=== PATIENT | female | born 1995 | race Caucasian/White ===

== ENCOUNTER 2016-09-17 21:23 | Emergency (ER) | payer BC ==
[2016-09-17 21:31] VITALS: TEMP 98.2
[2016-09-17] MEDS ORDERED: IPRATROPIUM/ALBUTEROL 3 ML DEYVIAL IH ONE (21:34)
--- NOTE | 2016-09-17 23:10 | CPEKG ---
Heart Rate: 90 RR Interval: 667 P-R Interval: 152 QRSD Interval: 100 QT Interval: 356 QTC Interval: 436 P [place]: 11 QRS [place]: 66 T Wave [place]: 29 EKG Severity - NORMAL ECG - EKG Impression: SINUS RHYTHM Electronically Signed By: Tracey Coppola 17-Sep-2016 23:10:09
[2016-09-17 23:11] LABS: % IMMATURE GRANULYOCYTES 0.9 % (0.0-1.1); ABSOLUTE IMMATURE GRANULOCYTES 0.04 10^3/uL (0.00-0.10); ADD DIFF? NO; ADD MORPH? NO; ADD SCAN? NO; ATYPICAL LYMPHOCYTE FLAG 10 (0-99); FRAGMENT RBC FLAG 0 (0-99); HEMATOCRIT 38.7 % (38.0-47.0); HEMOGLOBIN 13.7 g/dL (12.6-16.3); LEFT SHIFT FLG 0 (0-99); LIPEMIA HEMOLYSIS FLAG 90 (0-99); MEAN CELL HEMOGLOBIN 31.3 pg (27.9-34.1); MEAN CELL HEMOGLOBIN CONCENTR. 35.4 g/dL (32.4-36.7); MEAN CELL VOLUME 88.4 fL (81.5-99.8); MEAN PLATELET VOLUME 8.8 fL (8.7-11.7); PLATELET CLUMPS FLAG 10 (0-99); PLATELET COUNT 215 10^3/uL (150-400); RED BLOOD CELL COUNT 4.38 10^6/uL (4.18-5.33); RED CELL DISTRIBUTION WIDTH 11.7 % (11.5-15.2)
[2016-09-17 23:26] LABS: ANION GAP 15 mEq/L (8-16); CALCIUM 9.4 mg/dL (8.5-10.4); CARBON DIOXIDE 21 mEq/l (22-31); CHLORIDE 103 mEq/L (97-110); CREATININE 0.6 mg/dL (0.6-1.0); GLOMERULAR FILTRATION RATE > 60; GLUCOSE 76 mg/dL (70-100); POTASSIUM 3.2 mEq/L (3.5-5.2); SODIUM 139 mEq/L (134-144)
[2016-09-17 23:37] LABS: TROPONIN I < 0.012 ng/mL (0-0.034)
[2016-09-17] MEDS ORDERED: predniSONE 20 MG TAB PO ONE (23:40)
--- NOTE | 2016-09-17 23:40 | EDPHY ---
H & P Stated Complaint: Asthmatic increased use of nebulizers today. Time Seen by Provider: 09/17/16 21:51 HPI/ROS: Chief complaint: Difficulty breathing History of present illness: This is a 21-year-old female who presents to the emergency department for difficulty breathing. Patient reports a history of asthma. She states she had problems with a as a child and did need to be hospitalized. However she states she has run out of it and has not had significant problems long time. However, over the last few days she has noted increasing trouble breathing. She started using nebulizer again which does help the problem but quickly wears off. She denies any specific precipitating factors. She denies other alleviating factors. She denies other associated signs or symptoms including no fevers, no cold symptoms, no chest pain, no pain or swelling in the legs. - Personal History LMP (Females 10-55): 15-21 Days Ago Current Tetanus/Diphtheria Vaccine: Unsure Current Tetanus Diphtheria and Acellular Pertussis (TDAP): Unsure - Medical/Surgical History Hx Asthma: Yes Hx Chronic Respiratory Disease: No Hx Diabetes: No Hx Cardiac Disease: No Hx Renal Disease: No Hx Cirrhosis: No Hx Alcoholism: No Hx HIV/AIDS: No Hx Splenectomy or Spleen Trauma: No Other PMH: ASTHMA, RA, neuritis. - Social History Smoking Status: Never smoked - Physical Exam Exam: General Appearance: Alert, nontoxic . Eyes: Pupils equal and round no pallor or injection. ENT, Mouth: Mucous membranes moist. Respiratory: There are no retractions, lungs are clear to auscultation. Cardiovascular: Regular rate and rhythm. Gastrointestinal: Abdomen is soft and nontender, no masses, bowel sounds normal. Neurological: Alert and oriented x4. Strength and sensation intact and symmetrical. Skin: Warm and dry, no rashes. Musculoskeletal: Neck is supple nontender. Extremities are symmetrical, full range of motion. Psychiatric: Patient is oriented X 3, there is no agitation. Constitutional: Initial Vital Signs Temperature (C) 36.8 C 09/17/16 21:28 Heart Rate 111 H 09/17/16 21:28 Respiratory Rate 22 H 09/17/16 21:28 Blood Pressure 124/80 H 09/17/16 21:28 O2 Sat (%) 100 09/17/16 21:28 O2 Delivery Mode Room Air Allergies/Adverse Reactions: No Known Allergies Allergy (Verified 09/17/16 21:31) Home Medications: Medication Instructions Recorded Albuterol 09/17/16 Albuterol 5 mg/ml INH 09/17/16 Flovent Diskus 09/17/16 predniSONE 40 mg PO DAILY 3 Days 09/17/16 Medical Decision Making - Diagnostics Imaging: Chest x-ray negative ED Course/Re-evaluation: Patient seen under the supervision of my secondary supervising physician Dr. Tracey Coppola. Patient presents to the emergency department for trouble breathing. She does have a history of asthma but has not had symptoms in a long time. I my evaluation she is talking in full sentences and her lungs are clear to auscultation and she has normal pulse oximetry. This is after she was given a nebulizer in the emergency room. Nursing staff does report they heard wheezing on evaluation. Blood status, EKG and chest x-ray unremarkable. I do believe this is likely asthma exacerbation. She does appear to be responding 2 nebulizers and states she does feel much better after we gave her one here. Patient will be discharged home and asked to continue her nebulizers. She will be given a burst of steroids. She is asked to follow up with a primary care doctor for recheck. Return precautions are given. Patient voiced understanding and agreement with plan Differential Diagnosis: Included but not limited to asthma exacerbation, pulmonary infections, pulmonary embolism, cardiac dysrhythmias, anxiety - Data Points Laboratory Results: Laboratory Results 09/17/16 23:05 09/17/16 23:05 09/17/16 09/17/16 09/17/16 23:05 23:05 23:05 WBC RBC Hgb Hct MCV MCH MCHC RDW Plt Count MPV Neut % (Auto) Lymph % (Auto) [place] % (Auto) Eos % (Auto) Baso % (Auto) Nucleat RBC Rel Count Absolute Neuts (auto) Absolute Lymphs (auto) Absolute Monos (auto) Absolute Eos (auto) Absolute Basos (auto) Absolute Nucleated RBC Immature Gran % Immature Gran # D-Dimer < 0.27 ug/mLFEU ug/mLFEU (0.00-0.50) Sodium 139 mEq/L mEq/L (134-144) Potassium 3.2 mEq/L L mEq/L (3.5-5.2) Chloride 103 mEq/L mEq/L (97-110) Carbon Dioxide 21 mEq/l L mEq/l (22-31) Anion Gap 15 mEq/L mEq/L (8-16) BUN 8 mg/dL mg/dL (7-23) Creatinine 0.6 mg/dL mg/dL (0.6-1.0) Estimated GFR > 60 Glucose 76 mg/dL mg/dL (70-100) Calcium 9.4 mg/dL mg/dL (8.5-10.4) Troponin I < 0.012 ng/mL ng/mL (0-0.034) Beta HCG, Qual NEGATIVE 09/17/16 23:05 WBC 4.68 10^3/uL 10^3/uL (3.80-9.50) RBC 4.38 10^6/uL 10^6/uL (4.18-5.33) Hgb 13.7 g/dL g/dL (12.6-16.3) Hct 38.7 % % (38.0-47.0) MCV 88.4 fL fL (81.5-99.8) MCH 31.3 pg pg (27.9-34.1) MCHC 35.4 g/dL g/dL (32.4-36.7) RDW 11.7 % % (11.5-15.2) Plt Count 215 10^3/uL 10^3/uL (150-400) MPV 8.8 fL fL (8.7-11.7) Neut % (Auto) 70.4 % % (39.3-74.2) Lymph % (Auto) 17.5 % % (15.0-45.0) Mcleod % (Auto) 10.0 % % (4.5-13.0) Eos % (Auto) 0.6 % % (0.6-7.6) Baso % (Auto) 0.6 % % (0.3-1.7) Nucleat RBC Rel Count 0.0 % % (0.0-0.2) Absolute Neuts (auto) 3.29 10^3/uL 10^3/uL (1.70-6.50) Absolute Lymphs (auto) 0.82 10^3/uL L 10^3/uL (1.00-3.00) Absolute Monos (auto) 0.47 10^3/uL 10^3/uL (0.30-0.80) Absolute Eos (auto) 0.03 10^3/uL 10^3/uL (0.03-0.40) Absolute Basos (auto) 0.03 10^3/uL 10^3/uL (0.02-0.10) Absolute Nucleated RBC 0.00 10^3/uL 10^3/uL (0-0.01) Immature Gran % 0.9 % % (0.0-1.1) Immature Gran # 0.04 10^3/uL 10^3/uL (0.00-0.10) D-Dimer Sodium Potassium Chloride Carbon Dioxide Anion Gap BUN Creatinine Estimated GFR Glucose Calcium Troponin I Beta HCG, Qual Medications Given: Discontinued Medications Albuterol/Ipratropium (Duoneb) 3 ml IH EDNOW ONE Stop: 09/17/16 21:35 Last Admin: 09/17/16 21:48 Dose: 3 ml Prednisone (Prednisone) 40 mg PO EDNOW ONE Stop: 09/17/16 23:41 Last Admin: 09/17/16 23:49 Dose: 40 mg Departure - Departure Disposition: Home, Routine, Self-Care Clinical Impression: Exacerbation of asthma Condition: Good Instructions: Asthma (ED) Additional Instructions: Follow-up with a primary care doctor for recheck If symptoms worsen or new symptoms develop return to the emergency room for recheck Referrals: NONE *PRIMARY CARE P,. [Primary Care Provider] - As per Instructions Marysol Way DO [Doctor of Osteopathy] - As per Instructions Prescriptions: predniSONE 40 mg PO DAILY 3 Days
[2016-09-17 23:42] VITALS: RESP 18
[2016-09-17 23:50] VITALS: BP 114/70; PULSE 94; O2SAT 98
== END 2016-09-17 23:52 | disposition home or self-care (01) ==
DX: J45.901 Unspecified asthma with (acute) exacerbation (principal)